=== PATIENT | female | born 1995 | race Caucasian/White ===

== ENCOUNTER 2022-06-08 08:27 | Emergency (ER) | payer OTHER ==
[2022-06-08 09:30] LABS: SARS-CoV-2 NAA Rapid Test Not Detected (NotDetected)
== END 2022-06-08 10:10 | disposition home or self-care (01) ==
LOC: CSHERS 08:27
DX: J06.9 Acute upper respiratory infection, unspecified (principal); Z20.822 Contact with and (suspected) exposure to COVID-19
CPT/HCPCS: 99283

== ENCOUNTER 2022-06-24 08:56 | Inpatient (IN) | payer OTHER ==
[2022-06-24 09:36] VITALS: BMI 29.7
[2022-06-24] MEDS ORDERED: hydrALAZINE 20 MG/ML VIAL SLOW IVP PRN ×2 (09:37→13:07)
[2022-06-24 10:21] LABS: Fetal Membranes Rupture RUPTURE DETECTED (No Rupture)
[2022-06-24] MEDS ORDERED: Ketorolac Tromethamine 30 MG/ML VIAL IVP PRN (10:53)
[2022-06-24] MEDS ORDERED: Meperidine HCl/PF 25 MG/ML VIAL SLOW IVP PRN (10:53)
[2022-06-24] MEDS ORDERED: Moisturizing Cream (Eucerin) 113 GM JAR TOP PRN ×2 (10:53→21:15)
[2022-06-24] MEDS ORDERED: Naloxone HCl 0.4 mg/ml Vial IVP PRN ×2 (10:53)
[2022-06-24] MEDS ORDERED: Promethazine HCl 25 MG SUPP PR PRN ×2 (10:53→21:15)
[2022-06-24] MEDS ORDERED: Promethazine HCl 25 MG/ML VIAL IM PRN ×2 (10:53→21:15)
[2022-06-24] MEDS ORDERED: Ondansetron HCl/PF 4 MG/2 ML Vial IVP PRN (10:53)
[2022-06-24] MEDS ORDERED: diphenhydrAMINE 50 MG/ML VIAL IVP PRN ×2 (10:53→21:15)
[2022-06-24] MEDS ORDERED: Fentanyl 100 MCG/2 ML VIAL SLOW IVP PRN (10:53)
[2022-06-24] MEDS ORDERED: Naloxone HCl 0.4 mg/ml Vial IV PRN ×4 (10:53→21:15)
[2022-06-24] MEDS ORDERED: Ondansetron PF 4 MG/2 ML Vial IVP PRN ×2 (10:53→21:15)
[2022-06-24] MEDS ORDERED: Communication Order-Pharmacy FS SCH (11:00)
[2022-06-24] MEDS ORDERED: Ketorolac Tromethamine 30 MG/ML VIAL IVP SCH (11:00)
[2022-06-24] MEDS ORDERED: Famotidine/PF 20 mg/2ml Vial SLOW IVP PRN (12:06)
[2022-06-24] MEDS ORDERED: Bicitra 30 ML UDCUP PO PRN (12:06)
[2022-06-24] MEDS ORDERED: CEFAZOLIN 2 GM in Sodium Chloride 0.9% 100 ML IVPB SCH (12:15)
[2022-06-24] MEDS ORDERED: Lactated Ringer's 1,000 ML IV SCH (12:15)
[2022-06-24] MEDS ORDERED: Butorphanol Tartrate 1 MG/ML VIAL ONE (12:18)
[2022-06-24 12:25] LABS: Hemoglobin 13.9 g/dL (12.0-15.5); Mean Corpuscular HGB CONC 34.3 g/dL (32.0-36.0); Mean Corpuscular Hemoglobin 29.3 pg (27.0-33.0); Mean Corpuscular Volume 85.4 fl (81.6-98.3); Mean Platelet Volume 9.6 fl (7.4-10.4); Platelet Count 303 10x3/uL (150-450); RBC Distribution Width 18.5 % (11.5-14.5); Red Blood Cell (RBC) Count 4.74 10x6/uL (3.90-5.03); White Blood Cell (WBC) Count 13.9 10x3/uL (3.5-10.5)
[2022-06-24 12:51] LABS: Syphilis Antibody Nonreactive (Nonreactive); Syphilis Antibody Index 0.08 S/CO (<1.00 Non-Reactive)
[2022-06-24 12:53] LABS: HBSAg Index 0.15 S/CO (0-0.99); Hep B Surf Ag Non-Reactive S/CO (NonReactive)
[2022-06-24] MEDS ORDERED: Methylergonovine 0.2 MG/ML VIAL ONE (13:02)
[2022-06-24] MEDS ORDERED: Misoprostol 200 MCG TAB ONE (13:02)
[2022-06-24] MEDS ORDERED: Morphine PF 10 MG/10 ML VIAL ONE (13:04)
[2022-06-24] MEDS ORDERED: Boostrix 0.5 ML (Tdap) VIAL (>/=7 yrs of age) IM ONE (13:07)
[2022-06-24] MEDS ORDERED: Bisacodyl 10 MG SUPP PR PRN (13:07)
[2022-06-24] MEDS ORDERED: HYDROcodone/Acetaminophen 5/325 mg Tablet PO PRN ×2 (13:07)
[2022-06-24] MEDS ORDERED: Acetaminophen 325 MG TAB PO PRN (13:07)
[2022-06-24] MEDS ORDERED: diphenhydrAMINE 25 MG CAP PO PRN (13:07)
[2022-06-24] MEDS ORDERED: Lanolin Ointment 7 GM TUBE TOP PRN (13:07)
[2022-06-24] MEDS ORDERED: Oxytocin 10 UNITS/ML VIAL ONE ×2 (13:32→13:55)
[2022-06-24] MEDS ORDERED: Dexamethasone 4 mg/ml Vial ONE (13:32)
[2022-06-24] MEDS ORDERED: Phenylephrine 10 MG/ML VIAL ONE (13:33)
[2022-06-24] MEDS ORDERED: Ketorolac Tromethamine 30 MG/ML VIAL ONE (13:33)
[2022-06-24] MEDS ORDERED: diphenhydrAMINE 50 MG/ML VIAL ONE (13:37)
[2022-06-24] MEDS ORDERED: Midazolam HCl 2 mg/2 ml Vial ONE (13:41)
[2022-06-24] MEDS ORDERED: NO PO,IM,IV OR SC NARCOTICS FOR 12HR EXCEPT BY ANESTHESIA PO SCH (21:15)
[2022-06-24] MEDS: Docusate 100 MG CAP PO SCH (21:52)
[2022-06-24] MEDS: Simethicone Chewable 80 MG TAB PO PRN (22:21)
[2022-06-24] MEDS: Ketorolac Tromethamine 30 MG/ML VIAL IVP PRN (22:21)
[2022-06-25 03:54] LABS: Hemoglobin 8.6 g/dL (12.0-15.5); Mean Corpuscular HGB CONC 34.5 g/dL (32.0-36.0); Mean Corpuscular Volume 86.8 fl (81.6-98.3); Mean Platelet Volume 9.3 fl (7.4-10.4); Platelet Count 249 10x3/uL (150-450); Red Blood Cell (RBC) Count 2.87 10x6/uL (3.90-5.03); White Blood Cell (WBC) Count 20.8 10x3/uL (3.5-10.5)
[2022-06-25] MEDS: Ketorolac Tromethamine 30 MG/ML VIAL IVP PRN ×2 (04:52→12:34)
[2022-06-25] MEDS: Simethicone Chewable 80 MG TAB PO PRN ×2 (04:53→12:34)
[2022-06-25] MEDS: Ferrous Sulfate 325 MG TAB PO SCH ×2 (09:14→18:03)
[2022-06-25] MEDS: Docusate 100 MG CAP PO SCH ×2 (09:14→20:13)
[2022-06-25] MEDS: Prenatal Vitamin 1 TAB PO SCH (09:14)
[2022-06-25] MEDS: HYDROcodone/Acetaminophen 5/325 mg Tablet PO PRN ×2 (15:40→20:14)
[2022-06-25] MEDS ORDERED: Ibuprofen 800 MG TAB PO SCH (17:00)
[2022-06-25] MEDS: Ibuprofen 800 MG TAB PO SCH (20:14)
[2022-06-26] MEDS: HYDROcodone/Acetaminophen 5/325 mg Tablet PO PRN ×6 (00:18→23:12)
[2022-06-26] MEDS: Ibuprofen 800 MG TAB PO SCH ×3 (05:40→21:07)
[2022-06-26] MEDS: Ferrous Sulfate 325 MG TAB PO SCH ×2 (09:14→17:37)
[2022-06-26] MEDS: Docusate 100 MG CAP PO SCH ×2 (09:14→21:07)
[2022-06-26] MEDS: Prenatal Vitamin 1 TAB PO SCH (09:14)
[2022-06-26] MEDS: Simethicone Chewable 80 MG TAB PO PRN ×2 (09:14→15:01)
[2022-06-27] MEDS: Ibuprofen 800 MG TAB PO SCH ×3 (05:58→21:13)
[2022-06-27] MEDS: HYDROcodone/Acetaminophen 5/325 mg Tablet PO PRN ×4 (06:32→23:40)
[2022-06-27] MEDS: Docusate 100 MG CAP PO SCH ×2 (08:39→21:13)
[2022-06-27] MEDS: Prenatal Vitamin 1 TAB PO SCH (08:39)
[2022-06-27] MEDS: Ferrous Sulfate 325 MG TAB PO SCH ×2 (08:39→18:11)
[2022-06-27] MEDS: Simethicone Chewable 80 MG TAB PO PRN (14:08)
[2022-06-28] MEDS: HYDROcodone/Acetaminophen 5/325 mg Tablet PO PRN ×2 (04:26→09:23)
[2022-06-28] MEDS: Simethicone Chewable 80 MG TAB PO PRN (04:28)
[2022-06-28] MEDS: Ibuprofen 800 MG TAB PO SCH (05:47)
[2022-06-28 08:13] VITALS: BP 128/75; TEMP 98.5
[2022-06-28] MEDS: Prenatal Vitamin 1 TAB PO SCH (09:23)
[2022-06-28] MEDS: Ferrous Sulfate 325 MG TAB PO SCH (09:23)
[2022-06-28] MEDS: Docusate 100 MG CAP PO SCH (09:23)
== END 2022-06-28 11:40 | disposition home or self-care (01) | DRG 788 ==
LOC: CSHLD/OP 08:56 → CSHLD 11:31 → CSHPP 16:18
PROVIDERS: ADMIT Obstetrics & Gynecology; ATTEND Obstetrics & Gynecology
PROC: 10D00Z1 Extraction of Products of Conception, Low, Open Approach (ICD-10-PCS; principal; 2022-06-24)
DX: O42.02 Full-term premature rupture of membranes, onset of labor within 24 hours of rupture (principal); O34.211 Maternal care for low transverse scar from previous cesarean delivery; Z3A.37 37 weeks gestation of pregnancy; Z37.0 Single live birth; R42 Dizziness and giddiness; O99.893 Other specified diseases and conditions complicating puerperium; Z20.822 Contact with and (suspected) exposure to COVID-19; Q51.818 Other congenital malformations of uterus; O99.892 Other specified diseases and conditions complicating childbirth; O90.81 Anemia of the puerperium; D64.9 Anemia, unspecified
CPT/HCPCS: 36415; 51702; 84112; 85027; 86780; 86850; 86900; 86901; 87340; 99285; J0595; J1100; J1200; J1885; J2250; J2274; J2370; J2405; J2590